=== PATIENT | female | born 1995 | race Two or more races ===

== ENCOUNTER 2018-10-27 15:42 | Emergency (ER) | payer MEDICAID ==
[2018-10-27] MEDS: KETOROLAC 60 MG INJ IM (16:15)
[2018-10-27 17:38] LABS: URINE BLOOD (Dip) POC 1+ (NEGATIVE); URINE GLUCOSE (Dip) POC Negative (NEGATIVE); URINE KETONES (Dip) POC Negative (NEGATIVE); URINE LEUKOCYTE EST (Dip) POC 2+ (NEGATIVE); URINE NITRITE (Dip) POC Negative (NEGATIVE); URINE TOTAL PROTEIN POC 1+ (NEGATIVE)
[2018-10-27 17:38] LABS: URINE PH (Dip) POC 6.5 (5.0-8.5)
== END 2018-10-27 18:02 | disposition home or self-care (01) ==
LOC: FTE 15:42
DX: R30.0 Dysuria (principal); R10.2 Pelvic and perineal pain
CPT/HCPCS: 76830; 76856; 81003; 81025; 96372; 99285-25